=== PATIENT | female | born 1935 | race Caucasian/White ===

== ENCOUNTER → 2018-12-26 | Outpatient (CLI) | payer OTHER | LOC: FIMAGING 10:50 | PROVIDERS: ATTEND Orthopaedic Surgery | DX: Z01.818 Encounter for other preprocedural examination (principal); M16.12 Unilateral primary osteoarthritis, left hip ==

== ENCOUNTER 2019-01-21 10:09 | Day surgery (SDC) | payer OTHER ==
[2019-01-21] MEDS ORDERED: LR 1,000 ML IV ONE (10:20)
[2019-01-21] MEDS ORDERED: ALBUTEROL 3 ML DEYVIAL ONE (10:38)
[2019-01-21] MEDS ORDERED: ALBUTEROL 3 ML DEYVIAL IH ONE (10:41)
[2019-01-21] MEDS ORDERED: MIDAZOLAM 2 MG/2 ML VIAL ONE ×3 (11:19→11:57)
[2019-01-21] MEDS ORDERED: fentaNYL 100 MCG/2 ML INJ ONE (11:19)
[2019-01-21] MEDS ORDERED: LIDOCAINE 1% 300 MG/30 ML SDV ONE (11:19)
--- NOTE | 2019-01-21 11:34 | PDPROPOC ---
Sedation Plan of Care Sedation Plan of Care: vital signs stable, mental status noted, patient educated of risks, benefits, alternatives, patient can tolerate sedation ASA Classification: ASA 2 Planned drugs: fentanyl, midazolam Mallampati Score: Class 2 Mallampati Reference Image: Patient passed 3-3-2 rule?: Yes
--- NOTE | 2019-01-21 12:06 | POSTOPPROG ---
Post Op Note Date of Operation: 01/21/19 Surgeon: Nahum Davidson Anesthesia: IV Sedation Pre-op Diagnosis: Lung infiltrates Post-op Diagnosis: Same Procedure: Bronchoscopy with bx Findings: Normal airways Inf/Abcess present in the surg proc area at time of surgery?: No EBL: Minimal Complications: nont
[2019-01-21] MEDS ORDERED: fentaNYL 100 MCG/2 ML INJ IVP ONE (12:08)
[2019-01-21] MEDS ORDERED: MIDAZOLAM 2 MG/2 ML VIAL IVP ONE (12:08)
--- NOTE | 2019-01-21 12:12 | BVPULMO ---
[facility] Surgical Services- Pulmonology Patient Name: Monserrat Robertson Procedure Date: 01/21/2019 11:29 AM Patient Type: Outpatient Attending MD/ER Physician: Nahum Davidson MD Procedure: Bronchoscopy Indications: Bilateral infiltrate Providers: Nahum Davidson MD Medicines: Lidocaine applied to nares and subglottic space, Lidocaine 4% via nebulizer wit h Albuterol 2.5 mg, Lidocaine 1% applied to cords 2 mL, Lidocaine 1% subglottic s pace 4 mL, Fentanyl 125 mcg IV, Midazolam 7 mg IV, Oxygen 6 L/min Complications: No immediate complications Procedure: After informed consent, a time out was performed. N95 masks were worn, and the procedure was done in a negative pressure room. The patient was given appropria te topical anesthesia and intravenous sedation. The fiberopic bronchoscope was pas sed via a bite block orally into the larynx and subsequently into the lower trachea bronchial tree. Throughout the procedure, the patient's blood pressure, pulse, and oxygen saturations were monitored continuously. The Bronchoscope (Video) was introduced through the mouth and advanced to the tracheobronchial tree of both lungs. The patient tolerated the procedure fairly well. The total duration of t he procedure was 21 minutes. Total fluoroscopy time was 1 minute. Findings: The oropharynx appears normal. The larynx appears normal. The vocal cords appea r normal. The subglottic space is normal. The trachea is of normal caliber. The c izzy is sharp. The tracheobronchial tree was examined to at least the first subsegme ntal level. Bronchial mucosa and anatomy are normal; there are no endobronchial lesi ons, and no secretions. Bronchoalveolar lavage was performed in the left lower lobe of the lung and sen t for cell count, bacterial culture, viral smears & culture, and fungal & AFB analysi s and cytology. 40 mL of fluid were instilled. 20 mL were returned. The return was blood-tinged. There were no mucoid plugs in the return fluid. Transbronchial biopsies of an area of infiltration were performed in the latera l segment of the right middle lobe and in the medial segment of the right middle lobe using alligator forceps and sent for histopathology examination. Estimated blood loss: minimal. Post Op Diagnosis: - Bilateral infiltrate - The airway examination was normal. - Bronchoalveolar lavage was performed. - Transbronchial lung biopsies were performed. - The airway examination was normal. Estimated Blood Loss: Estimated blood loss: none. Recommendation: - Follow up with bronchoscopist in one week. Attending Participation: I personally performed the entire procedure. Nahum Davidson MD Nahum Davidson MD 01/21/2019 12:11:42 PM This report has been signed electronicallyThomas MD Lety Number of Addenda: 0 Note Initiated On: 01/21/2019 11:29 AM [email or web address]
[2019-01-21 15:10] VITALS: BP 144/120
== END 2019-01-21 15:00 | disposition home or self-care (01) ==
LOC: FSGY 10:09
PROVIDERS: ATTEND Internal Medicine Pulmonary Disease
DX: R05 Cough (principal); R91.8 Other nonspecific abnormal finding of lung field; R53.83 Other fatigue; I10 Essential (primary) hypertension; E78.5 Hyperlipidemia, unspecified; Z87.891 Personal history of nicotine dependence; Z79.82 Long term (current) use of aspirin
CPT/HCPCS: J2250; J3010; J7613